=== PATIENT | female | born 1965 | race American Indian/Alaskan Native ===

== ENCOUNTER 2016-07-19 10:54 | Emergency (ER) | payer BC, OTHER ==
[2016-07-19 11:02] VITALS: BP 153/76
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
== END 2016-07-19 11:40 | disposition home or self-care (01) ==
LOC: CC.ED 10:54
DX: S90.01XA Contusion of right ankle, initial encounter (principal); S80.11XA Contusion of right lower leg, initial encounter; I25.2 Old myocardial infarction; Z88.5 Allergy status to narcotic agent; Z86.73 Personal history of transient ischemic attack (TIA), and cerebral infarction without residual deficits; W22.8XXA Striking against or struck by other objects, initial encounter
CPT/HCPCS: 73590-RT; 73630-RT; 99283